=== PATIENT | male | born 1945 | race Hispanic/Latino ===

== ENCOUNTER 2018-12-26 09:48 | Outpatient (CLI) | payer OTHER ==
--- NOTE | 2018-12-26 14:52 | XRay Report ---
LEFT HAND, 3 views: History: Pain in left hand The bony architecture is intact. Bony alignment is normal. No soft tissue abnormalities are seen. The joint spaces appear preserved. IMPRESSION: Unremarkable left hand.
== END 2018-12-26 09:49 | disposition home or self-care (01) ==
LOC: SPVIMAG 09:48
PROVIDERS: ATTEND Internal Medicine
DX: M79.642 Pain in left hand (principal)